=== PATIENT | female | born 1995 | race Hispanic/Latino ===

== ENCOUNTER 2023-09-25 21:05 | Emergency (ER) | payer BC, OTHER, SELFPAY ==
[2023-09-25 22:09] LABS: SARS-CoV-2 NAA Rapid Test Not Detected (NotDetected)
[2023-09-25] MEDS ORDERED: Ipratropium/Albuterol 3 ML NEB ONE (23:22)
== END 2023-09-26 02:55 | disposition home or self-care (01) ==
LOC: CSHERS 21:05
DX: J20.9 Acute bronchitis, unspecified (principal); Z20.822 Contact with and (suspected) exposure to COVID-19
CPT/HCPCS: 71045; 85379; 94640; 94760; J7620

== ENCOUNTER 2024-03-08 23:21 | Emergency (ER) | payer OTHER, SELFPAY | END 2024-03-09 00:52 | disposition left against medical advice (07) | LOC: CSHERS 23:21 | DX: Z53.21 Procedure and treatment not carried out due to patient leaving prior to being seen by health care provider (principal) ==